=== PATIENT | female | born 1990 | race American Indian/Alaskan Native ===

== ENCOUNTER 2018-10-14 01:06 | Emergency (ER) | payer BC, OTHER ==
[2018-10-14] MEDS ORDERED: ULTRAM PO ONE (03:55)
--- NOTE | 2018-10-14 04:56 | Emergency Department Report ---
ED Lower Extremity HPI - General Chief Complaint: Extremity Injury, Lower Stated Complaint: POSSIBLE R FRACT/BROKEN Time Seen by Provider: 10/14/18 03:53 Source: patient Mode of arrival: Wheelchair Limitations: No Limitations - History of Present Illness Initial Comments: pt is a 27-year-old Afro-[place] female who presents for right lateral ankle pain status post office on concrete last night patient now unable to bear weight ,due to 8/10 , swelling , no open wound. MD Complaint: ankle injury Onset/Timin -: days(s) Injury: Ankle: Right Type of Injury: eversion Place: home Severity: moderate Severity scale (0 -10): 5 Improves With: nothing Worsens With: nothing Context: fall Associated Symptoms: swelling, tingling, able to partially bear weight. denies: snap/pop sensation, numbness - Related Data Previous Rx's Medication Instructions Recorded Last Taken Type Acetaminophen/Codeine [Tylenol 1 tab PO Q6H PRN #12 tab 10/14/18 Unknown Rx /Codeine # 3 tab] Cyclobenzaprine [Flexeril] 10 mg PO TID PRN #30 tablet 10/14/18 Unknown Rx Naproxen [Naprosyn] 500 mg PO BID PRN #30 tablet 10/14/18 Unknown Rx Allergies Allergy/AdvReac Type Severity Reaction Status Date / Time No Known Allergies Allergy Verified 10/14/18 01:10 ED Review of Systems ROS: Stated complaint: POSSIBLE R FRACT/BROKEN Other details as noted in HPI Constitutional: denies: chills, fever Eyes: denies: eye pain, eye discharge, vision change ENT: denies: ear pain, throat pain Respiratory: denies: cough, shortness of breath, wheezing Cardiovascular: denies: chest pain, palpitations Endocrine: no symptoms reported Gastrointestinal: denies: abdominal pain, nausea, vomiting, diarrhea Genitourinary: denies: urgency, dysuria, frequency, hematuria, discharge Musculoskeletal: joint swelling, myalgia. denies: back pain, arthralgia Skin: denies: rash, lesions Neurological: denies: headache, weakness, paresthesias Psychiatric: denies: anxiety, depression Hematological/Lymphatic: denies: easy bleeding, easy bruising ED Past Medical Hx - Past Medical History Previous Medical History?: No - Surgical History Past Surgical History?: No - Social History Smoking Status: Never Smoker Substance Use Type: None - Medications Home Medications: Home Medications Medication Instructions Recorded Confirmed Last Taken Type Acetaminophen/Codeine [Tylenol 1 tab PO Q6H PRN #12 tab 10/14/18 Unknown Rx /Codeine # 3 tab] Cyclobenzaprine [Flexeril] 10 mg PO TID PRN #30 tablet 10/14/18 Unknown Rx Naproxen [Naprosyn] 500 mg PO BID PRN #30 tablet 10/14/18 Unknown Rx ED Physical Exam - General Limitations: No Limitations General appearance: alert, in no apparent distress - Head Head exam: Present: normocephalic, normal inspection - Expanded Head Exam Expanded Head exam: Absent: laceration, abrasion, contusion, hematoma, racoon eyes, larios's sign, general tenderness, tenderness of temporal artery, CSF rhinorrhea, CSF otorrhea - Eye Eye exam: Present: normal appearance, PERRL, EOMI. Absent: nystagmus, periorbital swelling, periorbital tenderness Pupils: Present: normal accommodation - ENT ENT exam: Present: mucous membranes moist - Neck Neck exam: Present: normal inspection, full ROM. Absent: tenderness, meningismus, lymphadenopathy - Respiratory Respiratory exam: Present: normal lung sounds bilaterally. Absent: respiratory distress, wheezes, stridor, chest wall tenderness - Cardiovascular Cardiovascular Exam: Present: regular rate, normal rhythm, normal heart sounds. Absent: systolic murmur, diastolic murmur, rubs, gallop - GI/Abdominal GI/Abdominal exam: Present: soft, normal bowel sounds. Absent: distended, tenderness, guarding, rebound, rigid, bruit, hernia - Rectal Rectal exam: Present: deferred - Extremities Exam Extremities exam: Present: tenderness (right lateral ankle pain swelling ), normal capillary refill, joint swelling. Absent: pedal edema, calf tenderness - Expanded Lower Extremity Exam Right Ankle exam: Present: tenderness, swelling, crepidus. Absent: abrasion, laceration, ecchymosis, deformity, dislocation, erythema, anterior draw sign Foot/Toe exam: Present: full ROM, swelling. Absent: abrasion, laceration, ecchymosis, deformity, crepidus, erythema, amputation, puncture wound Neuro vascular tendon exam: Present: no vascular compromise. Absent: pulse deficit, motor deficit, sensory deficit, tendon deficit Gait: Positive: observed and limited by pain - Back Exam Back exam: Present: normal inspection, full ROM, tenderness. Absent: CVA tenderness (R), CVA tenderness (L), muscle spasm, paraspinal tenderness, vertebral tenderness, rash noted - Neurological Exam Neurological exam: Present: alert, oriented X3, CN II-XII intact, normal gait, reflexes normal - Expanded Neurological Exam Expanded Patient oriented to: Present: person, place, time Speech: Present: fluid speech Cranial nerves: EOM's Intact: Normal, Gag Reflex: Normal, Tongue Deviation: Normal, Nystagmus: Normal, Facial Sensation: Normal Sensory exam: Lower Extremity Light Touch: Normal, Lower Extremity Pin Prick: Normal, Lower Extremity Temperature: Normal, LE 2 Point Discrimination: Normal Motor strength exam: RUE: 5, LUE: 5, RLE: 5, LLE: 5 DTR: ankle (R): 2+, ankle (L): 2+ Best Eye Response ([place]): (4) open spontaneously Best Motor Response ([place]): (6) obeys commands Best Verbal Response ([place]): (5) oriented [place] Total: 15 - Psychiatric Psychiatric exam: Present: normal affect, normal mood - Skin Skin exam: Present: warm, dry, intact, normal color. Absent: rash ED Course Vital Signs 10/14/18 10/14/18 01:15 04:09 Temperature 98.2 F Pulse Rate 101 H Respiratory 16 20 Rate Blood Pressure 144/77 [Left] O2 Sat by Pulse 100 Oximetry ED Lower Extremity MDM - Radiology Data Radiology results: report reviewed, image reviewed Ordering Physician: ADELA BILLY MD Date of Service: 10/14/18 Procedure(s): XR ankle 3+V RT Accession Number(s): [id number] cc: ADELA BILLY MD Fluoro Time In Minutes: PROCEDURE: XR ANKLE 3+V RT TECHNIQUE: Right ankle radiographs, AP, lateral, and oblique views. HISTORY: right ankle pain COMPARISONS: None . FINDINGS: Right ankle periarticular soft tissue swelling greatest over the lateral malleolus without fracture, gross malalignment or deformity. Joint spaces are grossly unremarkable. IMPRESSION: Soft tissue swelling about right ankle without fracture or gross malalignment. This document is electronically signed by Daniel Freitas MD., October 14 2018 06:06:56 AM ET Transcribed By: MB Dictated By: DANIEL FREITAS MD Electronically Authenticated By: DANIEL FREITAS MD Signed Date/Time: 10/14/18 0509 DD/ 9 TD/TT: 10/14/18 013 - Medical Decision Making xray ankle no fracture , soft tissue swelling , plan: crutches, ankle stirrup , follow up with ortho in 2-3 days. splint check complete, pt for dc to home in stable condition, pt demonstrate safe use of crutches, splint spacing is approriate. Critical care attestation.: If time is entered above; I have spent that time in minutes in the direct care of this critically ill patient, excluding procedure time. ED Disposition Clinical Impression: Right ankle sprain Qualifiers: Encounter type: initial encounter Involved ligament of ankle: unspecified ligament Qualified Code(s): S93.401A - Sprain of unspecified ligament of right ankle, initial encounter Disposition: DC-01 TO HOME OR SELFCARE Is pt being admited?: No Does the pt Need Aspirin: No Condition: Stable Prescriptions: Cyclobenzaprine [Flexeril] 10 mg PO TID PRN #30 tablet PRN Reason: Muscle Spasm Naproxen [Naprosyn] 500 mg PO BID PRN #30 tablet PRN Reason: Pain , Severe (7-10) Acetaminophen/Codeine [Tylenol /Codeine # 3 tab] 1 tab PO Q6H PRN #12 tab PRN Reason: severe bonner Referrals: ANNELIESE ARREAGA MD [Staff Physician] - 3-5 Days Forms: Work/School Release Form(ED) Time of Disposition: 05:21
--- NOTE | 2018-10-14 05:09 | XRay Report ---
PROCEDURE: XR ANKLE 3+V RT TECHNIQUE: Right ankle radiographs, AP, lateral, and oblique views. HISTORY: right ankle pain COMPARISONS: None . FINDINGS: Right ankle periarticular soft tissue swelling greatest over the lateral malleolus without fracture, gross malalignment or deformity. Joint spaces are grossly unremarkable. IMPRESSION: Soft tissue swelling about right ankle without fracture or gross malalignment. This document is electronically signed by Daniel Hernández MD., October 14 2018 06:06:56 AM ET
[2018-10-14 05:41] VITALS: BP 124/77
== END 2018-10-14 05:45 | disposition home or self-care (01) ==
LOC: ED 01:06
DX: S93.401A Sprain of unspecified ligament of right ankle, initial encounter (principal); X58.XXXA Exposure to other specified factors, initial encounter; Y93.89 Activity, other specified; Y92.89 Other specified places as the place of occurrence of the external cause; Y99.8 Other external cause status